=== PATIENT | male | born 1960 | race Caucasian/White ===

== ENCOUNTER → 2016-11-25 | Outpatient (CLI) | payer BC ==
[~2016-11-25] MED LIST: AMLO-110 PO; ASPCH81 PO; CLR10 PO; COEN100C11 PO; EZET10TA63 PO; FENO145T26 PO; HYDR-5688 PO; LOSA50TA54 PO; MISCTAB78 PO; MULT-506 PO; OMEG12006 PO; VALS-10 PO
[2016-11-25 20:20] LABS: BLOOD UREA NITROGEN 20 mg/dl (7-18); BUN/CREATININE RATIO 16.7 (10-20); CARBON DIOXIDE 32 mmol/L (21-32); CHLORIDE 104 mmol/L (98-107); GLUCOSE 137 mg/dl (70-99); POTASSIUM 3.1 mmol/L (3.5-5.1); SODIUM 141 mmol/L (136-145)
[2016-11-25 20:21] LABS: CALCIUM 9.5 mg/dl (8.5-10.1)
== END | disposition home or self-care (01) ==
LOC: C.LAB 19:12
PROVIDERS: ATTEND Family Medicine Adolescent Medicine
DX: E86.0 Dehydration (principal)

== ENCOUNTER → 2017-01-31 | Day surgery (SDC) | payer BC ==
[2017-01-23 08:51] VITALS: Ht 172.7 cm; Wt 94.5 kg
[~2017-01-31] VITALS: Ht 172.7 cm; Wt 94.5 kg
[~2017-01-31] MED LIST changes: +ATROPINE SULFATE 0.1 MG/ML 5ML SYR IV PRN; +BUPIVACAINE 0.5 % 5 MG/1 ML PF 10ML VIAL ONE; +CEFAZOLIN 2000 MG/60 ML D5W IV SCH; +EpHEDrine SULFATE INJ 50 MG/ML AMP IV PRN; -FENO145T26 PO; +FENTANYL CITRATE INJ 50 MCG/1 ML 2 ML VIAL IV PRN; +FENTANYL CITRATE INJ 50 MCG/1 ML 2 ML VIAL ONE; +LACTATED RINGER'S 1000ML 1,000 ML IV SCH; +LIDOCAINE HCL 1% 20 ML VIAL ONE; +LIDOCAINE HCL 2% 2 ML VIAL (20MG/ML) ONE; -LOSA50TA54 PO; +METHYLPREDNISOLONE ACETATE 80 MG/ML VIAL ONE; +MIDAZOLAM HCL 1 MG/ML 2ML VIAL ONE; +ONDANSETRON INJ 2 MG/ML 2 ML VIAL IV PRN; +ONDANSETRON INJ 2 MG/ML 2 ML VIAL ONE; +OXYCODONE/ACETAMINOPHEN 5-325 TAB PO PRN; +PROPOFOL IV EMULSION 10 MG/ML 20 ML VIAL IV ONE; +SODIUM CHLORIDE 0.9% 1000ML 1,000 ML IV SCH
--- NOTE | 2017-01-31 07:41 | History & Physical Bridge - [place] ---
H&P Re-Evaluation Bridge Note: I have examined the patient, reviewed the History & Physical and in the interval since the performance of the History & Physical I have noted the following changes of clinical significance: No changes noted
--- NOTE | 2017-01-31 08:07 | [facility] Post Operative Brief Note ---
Immediate Operative Summary Operative Date Jan 31, 2017. Pre-Operative Diagnosis Right Long Trigger Finger; Left Long Trigger Finger Post-Operative Diagnosis Same Procedure(s) Performed Right Long Trigger Finger Release; Left Long Trigger Finger Steriod Injection Surgeon Dr. Draper Banquet Houseperson Surgeon(s) Mauri Hoyos PA-C Estimated Blood Loss 0 Findings ABOVE Specimens None Anesthesia LOCAL IV SEDATION Disposition
[2017-01-31 08:08] VITALS: TEMP 36.6
--- NOTE | 2017-01-31 08:12 | Discharge Instructions-SurgCtr ---
Discharge Instructions Date of Service Jan 31, 2017. Visit Reason for Visit: Bilateral Long Finger Triggering Digits Discharge Discharge Diagnosis / Problem: SAME ABOVE Discharge Goals Goal(s): Decrease discomfort, Improve function Activity Recommendations Activity Limitations: as noted below Lifting Limitations: gradually increase as tolerated Exercise/Sports Limitations: until after follow-up appointment Shower/Bathe: may shower/bathe in 3 days Anesthesia . Post Anesthesia Instructions: If you have had General Anesthesia or IV Sedation: * Do not drive today. * Resume driving when surgeon permits. * Do not make important decisions or sign legal documents today. * Call surgeon for: 1. Temperature elevations greater than 101 degrees F. 2. Uncontrollable pain. 3. Excessive bleeding. 4. Persistent nausea and vomiting. 5. Medication intolerance (nausea, vomiting or rash). * For nausea and vomiting use only clear liquids such as: tea, soda, bouillon until nausea subsides, then gradually increase diet as tolerated. * If you have any concerns or questions, call your surgeon's office. If physician is unavailable and it is an emergency, call 911 or go to the nearest emergency room. . Instructions / Follow-Up Instructions / Follow-Up MEDICATIONS: * Resume previous medications unless instructed otherwise by your surgeon. * Always take pain medication on a full stomach or with food to avoid upset stomach. * Do not drink alcohol or drive while taking narcotics. * Ibuprofen or Tylenol may be taken if narcotic not needed. SPECIAL CARE INSTRUCTIONS: __ None _X_ Keep extremity elevated and iced x 48 hours; apply ice 20-30 minutes 8-10 times/day. May remove at night. __ Sling __24 hrs/day __ Remove at night __ Shoulder Immobilizer __ 24 hrs/day __ Remove at night _X_ Dressing __ Maintain until seen in office, may shower with plastic over site _X_ Remove dressings in 24-48 hours and then may shower _X_ Cover incisions with band-aids after showering __ Do not remove steri-strips Call physician if chills or temperature rises above 102 degrees or pain unrelieved by prescribed pain medications at . . Diet Recommendations Home Diet: resume previous diet Procedures Procedures Performed: Right Long Trigger Finger Release; Left Long Trigger Finger Steriod Injection Pending Studies Studies pending at discharge: no Medical Emergencies . Who to Call and When: Medical Emergencies: If at any time you feel your situation is an emergency, please call 911 immediately. . Non-Emergent Contact Non-Emergency issues call your: Primary Care Provider . . "Provider Documentation" section prepared by Asher Hoyos. .
--- NOTE | 2017-01-31 08:15 | Anesthesia Progress Nt - [facility] ---
Anesthesia Post Op Note Date & Time Jan 31, 2017 at 08:15 Vital Signs Pain Intensity: 0 Vital Signs Past 12 Hours Date Time Temp Pulse Resp B/P (MAP) Pulse Ox O2 Delivery O2 Flow Rate FiO2 01/31/17 08:08 36.6 60 12 133/78 (96) 96 Room Air 01/31/17 07:00 36.6 64 18 133/79 (97) 98 Room Air Notes Mental Status: alert / awake / arousable, participated in evaluation Pt Amnestic to Procedure: Yes Nausea / Vomiting: adequately controlled Pain: adequately controlled Airway Patency, RR, SpO2: stable & adequate BP & HR: stable & adequate Hydration State: stable & adequate Anesthetic Complications: no major complications apparent
[2017-01-31 08:40] VITALS: BP 109/67; PULSE 65; O2SAT 95
--- NOTE | 2017-02-02 08:44 | OPERATIVE REPORT ---
DATE OF SURGERY: 01/31/17 PREOPERATIVE DIAGNOSES: 1. Right long trigger finger. 2. Left long trigger finger. POSTOPERATIVE DIAGNOSIS: Same. PROCEDURE: 1. Release of the A1 taye right long finger. 2. Injection of left long finger with cortisone shot. SURGEON: Dr. Draper LABORER [employer]: Asher Hoyos PA-C ANESTHESIOLOGIST: Dr. Hernández ANESTHESIA: Local with IV sedation. DRAINS: None. COMPLICATIONS: None. CONDITION: The patient tolerated the procedure well and returned to the recovery room in apparent satisfactory condition. INDICATIONS FOR SURGERY: Patrice is a 56-year-old right hand dominant male who has had triggering of the right long finger chronic now and painful and elected to go ahead and proceed with surgery. He is having beginning triggering of the left long finger. We elected to go ahead and give him a shot at the time of surgery. Procedure, expected outcomes, side effects, and risks were all explained in detail including no guarantees of the surgery. DESCRIPTION OF PROCEDURE: Patient was taken to the operating room, at which time he was placed supine on the operating table and given IV sedation by the anesthesia department. We started with an injection to his left long finger. We cleaned the anticipated injection site off with multiple alcohol swabs and then injected it without incident with cortisone and Marcaine. A Band-Aid was placed over the injection site. The right hand was then prepped and draped in usual sterile fashion for surgery. We put a forearm tourniquet on for blood control. The right arm then was prepped and draped in a sterile fashion for surgery. We exsanguinated her arm and put a forearm tourniquet for blood control. The right arm was then prepped and draped in usual sterile fashion for surgery. We exsanguinated her arm and put a forearm tourniquet up to 250 mmHg. Transverse incision was then made over the A1 taye with loupe magnification. We dissected it down and retracted the digital nerves and then divided the A1 taye with an 11 blade. Wound was copiously irrigated then. Fingers were taken though range of motion. No longer trigger. Skin was closed with interrupted 4-0 nylon sutures. Marcaine without epinephrine was placed in the skin edges. Placed in a sterile dressing of Xeroform, 4 x 4, Sof-Rol, and Coban and returned to recovery room in apparent satisfactory condition.
== END | disposition home or self-care (01) ==
LOC: X.SURG 06:38
PROVIDERS: ATTEND Orthopaedic Surgery
DX: M65.331 Trigger finger, right middle finger (principal); M65.332 Trigger finger, left middle finger; I10 Essential (primary) hypertension; E66.9 Obesity, unspecified; E78.00 Pure hypercholesterolemia, unspecified; Z90.49 Acquired absence of other specified parts of digestive tract; Z98.52 Vasectomy status; Z85.828 Personal history of other malignant neoplasm of skin; Z79.82 Long term (current) use of aspirin

== ENCOUNTER 2017-12-11 03:03 | Emergency (ER) | payer BC, OTHER ==
[~2017-12-11] VITALS: Ht 172.7 cm; Wt 101.6 kg
[~2017-12-11 03:03] MED LIST changes: -ATROPINE SULFATE 0.1 MG/ML 5ML SYR IV PRN; -BUPIVACAINE 0.5 % 5 MG/1 ML PF 10ML VIAL ONE; -CEFAZOLIN 2000 MG/60 ML D5W IV SCH; -EpHEDrine SULFATE INJ 50 MG/ML AMP IV PRN; -FENTANYL CITRATE INJ 50 MCG/1 ML 2 ML VIAL IV PRN; -FENTANYL CITRATE INJ 50 MCG/1 ML 2 ML VIAL ONE; -HYDR-5688 PO; -LACTATED RINGER'S 1000ML 1,000 ML IV SCH; -LIDOCAINE HCL 1% 20 ML VIAL ONE; -LIDOCAINE HCL 2% 2 ML VIAL (20MG/ML) ONE; -METHYLPREDNISOLONE ACETATE 80 MG/ML VIAL ONE; -MIDAZOLAM HCL 1 MG/ML 2ML VIAL ONE; -ONDANSETRON INJ 2 MG/ML 2 ML VIAL IV PRN; -ONDANSETRON INJ 2 MG/ML 2 ML VIAL ONE; -OXYCODONE/ACETAMINOPHEN 5-325 TAB PO PRN; -PROPOFOL IV EMULSION 10 MG/ML 20 ML VIAL IV ONE; -SODIUM CHLORIDE 0.9% 1000ML 1,000 ML IV SCH
[2017-12-11 03:07] VITALS: TEMP 36.6; Ht 172.7 cm; Wt 101.6 kg
[2017-12-11] MEDS ORDERED: KETOROLAC TROMETHAMINE 30 MG/ML VIAL IV STA (03:16)
[2017-12-11] MEDS ORDERED: LORAZEPAM 2 MG/ML 1 ML VIAL ONE (03:22)
[2017-12-11] MEDS ORDERED: SODIUM CHLORIDE 0.9% 1000ML 1,000 ML IV STA (03:22)
[2017-12-11] MEDS ORDERED: LORAZEPAM 2 MG/ML 1 ML VIAL IV STA (03:22)
[2017-12-11 03:44] LABS: BASO % 0.2 %; BASO ABS # 0.02 K/uL (0-0.2); EOS % 1.7 %; EOS ABS # 0.18 K/uL (0-0.5); HEMATOCRIT 43.9 % (42-52); HEMOGLOBIN 15.7 g/dL (14.0-18.0); IG# 0.05 K/uL (0.00-0.02); LYMPH % 32.9 %; LYMPH ABS # 3.43 K/uL (1.2-3.4); MEAN CELL VOLUME 85.1 fL (80-100); MEAN CORPUSCULAR HEMOGLOBIN 30.4 pg (25-34); MEAN CORPUSCULAR HGB CONC 35.8 g/dl (32-36); MEAN PLATELET VOLUME 9.3 fL (7.4-10.4); MONO % 11.2 %; MONO ABS # 1.17 K/uL (0.11-0.59); NEUT % 53.5 %; NEUT ABS # 5.57 K/uL (1.4-6.5); PLATELET COUNT 177 K/uL (130-400); RED CELL DISTRIBUTION WIDTH CV 13.1 % (11.5-14.5); RED CELL DISTRIBUTION WIDTH SD 40.6 fL (36.4-46.3); WHITE BLOOD COUNT 10.42 K/uL (4.8-10.8)
[2017-12-11 03:49] LABS: ISTAT CREATININE 1.5 mg/dl (0.6-1.3); ISTAT IONIZED CALCIUM 1.12 mmol/l (1.12-1.32); ISTAT POTASSIUM 3.4 mEq/L (3.3-5.0)
[2017-12-11] MEDS ORDERED: ASPI81TA28 PO (03:51)
[2017-12-11] MEDS ORDERED: NIAC100T5 PO (03:51)
[2017-12-11] MEDS ORDERED: COEN200C PO (03:51)
[2017-12-11] MEDS ORDERED: OPTIRAY 320 IV PRN (04:00)
[2017-12-11 04:02] LABS: ALBUMIN 4.2 gm/dl (3.4-5.0); CREATININE 1.49 mg/dl (0.60-1.40); POTASSIUM 3.4 mmol/L (3.5-5.1)
[2017-12-11] MEDS ORDERED: MoRPHine SULFATE 4 MG/ML 1 ML CARP\\VIAL IV STA (04:04)
[2017-12-11 04:05] LABS: TOTAL PROTEIN 7.5 gm/dl (6.4-8.2)
[2017-12-11] MEDS ORDERED: OXYCODONE IR HOME PACK PO ONE (04:30)
--- NOTE | 2017-12-11 04:30 | EMERGENCY ROOM VISIT NOTE ---
History First contact with patient: 03:11 Chief Complaint: FLANK PAIN Stated Complaint: PAIN IN SIDE History of Present Illness The patient is a 57 year old male who presents to the Emergency Room with complaints of right flank pain that radiates around his right upper quadrant for the past day described as aching, ranging in severity 7 out of 10. Palpation makes it worse nothing makes it better. Patient did develop a rash to the back area tonight. No history of shingles. He has had his gallbladder removed. No history of kidney stones. Patient denies chest pain, dyspnea, fever, chills, nausea, vomiting, diarrhea, testicular pain, penile pain. Review of Systems An 10 system review of systems was completed with positives and pertinent negatives listed in the HPI. Past Medical/Surgical History Hypertension, hyperlipidemia, cholecystectomy, claustrophobia Social History Smoking Status: Never Smoker Smokeless Tobacco Use: No Alcohol Use: occasionally Drug Use: none Marital Status: Housing Status: lives with family Occupation Status: employed Current/Historical Medications Scheduled Amlodipine (Norvasc), 5 MG PO HS Aspirin (Aspirin Ec), 81 MG PO HS Coenzyme Q10 (Ubidecarenone) (Coenzyme Q-10), 200 MG PO HS Ezetimibe (Zetia), 10 MG PO HS Loratadine (Claritin), 10 MG PO HS Misc Natural Products (Osteo Bi-Flex Advanced Do), 2 TAB PO HS Niacin (Niacin), 100 MG PO HS [place]-3 Fatty Acids ([place] 3), 2 CAP PO HS Valsartan/Hctz (Diovan Hct 320MG/12.5MG), 1 TAB PO HS Physical Exam Vital Signs Date Time Temp Pulse Resp B/P (MAP) Pulse Ox O2 Delivery O2 Flow Rate FiO2 12/11/17 03:59 79 18 168/98 95 Room Air 12/11/17 03:07 36.6 80 18 167/106 97 Room Air Physical Exam VITALS: Vitals are noted on the nurse's note and reviewed by myself. Vital signs hypertensive. GENERAL: Pleasant male who appears in pain, in no acute distress, nondiaphoretic , well-developed well-nourished. SKIN: Right upper back over the T7 distribution with raised erythematous vesicular papules concerning for shingles. The rest of the skin was without rashes, erythema, edema, or bruising. There is no tenting of the skin. Capillary reflex less than 2 seconds. HEAD: Normocephalic atraumatic. EARS: External auditory canals clear, tympanic membranes pearly tamayo without erythema or effusion bilaterally. EYES: Pupils equal round and reactive to light and accommodation. Conjunctivae without injection, sclerae without icterus. Extraocular movements intact. NOSE: Patent, turbinates without inflammation or discharge. No sinus tenderness. MOUTH: Mucous membranes moist. Pharynx without erythema or exudate. Uvula midline. Airway patent. Tongue does not deviate. NECK: Supple without nuchal rigidity. No lymphadenopathy. No thyromegaly. Cervical spine is nontender. No JVD. HEART: Regular rate and rhythm without murmurs gallops or rubs. LUNGS: Clear to auscultation bilaterally without wheezes, rales or rhonchi. No retractions or accessory muscle use. ABDOMEN: Positive bowel sounds x 4. Normal tympanic percussion. Soft, tender to palpation over the right flank and upper quadrant, without masses or organomegaly. No guarding or rebound tenderness. Right CVA tenderness MUSCULOSKELETAL: No muscle atrophy, erythema, or edema noted. NEURO: Patient was alert and oriented to person place and time. Normal sensation to light and sharp touch. No focal neurological deficits. Medical Decision & Procedures Laboratory Results 12/11/17 03:32 Red Blood Count 5.16, Mean Corpuscular Volume 85.1, Mean Corpuscular Hemoglobin 30.4, Mean Corpuscular Hemoglobin Concent 35.8, Mean Platelet Volume 9.3, Neutrophils (%) (Auto) 53.5, Lymphocytes (%) (Auto) 32.9, Monocytes (%) (Auto) 11.2, Eosinophils (%) (Auto) 1.7, Basophils (%) (Auto) 0.2, Neutrophils # (Auto ) 5.57, Lymphocytes # (Auto) 3.43, Monocytes # (Auto) 1.17, Eosinophils # (Auto ) 0.18, Basophils # (Auto) 0.02 12/11/17 03:32 Test 12/11/17 03:32 12/11/17 03:35 White Blood Count 10.42 K/uL (4.8-10.8) Red Blood Count 5.16 M/uL (4.7-6.1) Hemoglobin 15.7 g/dL (14.0-18.0) Hematocrit 43.9 % (42-52) Mean Corpuscular Volume 85.1 fL (80-100) Mean Corpuscular Hemoglobin 30.4 pg (25-34) Mean Corpuscular Hemoglobin Concent 35.8 g/dl (32-36) Platelet Count 177 K/uL (130-400) Mean Platelet Volume 9.3 fL (7.4-10.4) Neutrophils (%) (Auto) 53.5 % Lymphocytes (%) (Auto) 32.9 % Monocytes (%) (Auto) 11.2 % Eosinophils (%) (Auto) 1.7 % Basophils (%) (Auto) 0.2 % Neutrophils # (Auto) 5.57 K/uL (1.4-6.5) Lymphocytes # (Auto) 3.43 K/uL (1.2-3.4) Monocytes # (Auto) 1.17 K/uL (0.11-0.59) Eosinophils # (Auto) 0.18 K/uL (0-0.5) Basophils # (Auto) 0.02 K/uL (0-0.2) RDW Standard Deviation 40.6 fL (36.4-46.3) RDW Coefficient of Variation 13.1 % (11.5-14.5) Immature Granulocyte % (Auto) 0.5 % Immature Granulocyte # (Auto) 0.05 K/uL (0.00-0.02) Urine Color YELLOW Urine Appearance CLEAR (CLEAR) Urine pH 5.0 (4.5-7.5) Urine Specific [place] 1.032 (1.000-1.030) Urine Protein NEG (NEG) Urine Glucose (UA) NEG (NEG) Urine Ketones NEG (NEG) Urine Occult Blood NEG (NEG) Urine Nitrite NEG (NEG) Urine Bilirubin NEG (NEG) Urine Urobilinogen NEG (NEG) Urine Leukocyte Esterase NEG (NEG) Est Creatinine Clear Calc Drug Dose 62.4 ml/min Estimated GFR () 59.1 Estimated GFR (Non- 51.0 BUN/Creatinine Ratio 15.4 (10-20) Calcium Level 9.0 mg/dl (8.5-10.1) Total Bilirubin 0.7 mg/dl (0.2-1) Direct Bilirubin 0.1 mg/dl (0-0.2) Aspartate Amino Transf (AST/SGOT) 30 U/L (15-37) Alanine Aminotransferase (ALT/SGPT) 51 U/L (12-78) Alkaline Phosphatase 47 U/L (45-117) Total Protein 7.5 gm/dl (6.4-8.2) Albumin 4.2 gm/dl (3.4-5.0) Lipase 193 U/L (73-393) Bedside Hemoglobin 15.6 g/dl (14.0-18.0) Bedside Hematocrit 46 % (42-52) Bedside Sodium 142 mEq/L (135-144) Bedside Potassium 3.4 mEq/L (3.3-5.0) Bedside Chloride 102 mEq/L (101-112) Bedside Total CO2 26 mEq/l (24-31) Anion Gap 18.0 mmol/L (16-25) Bedside Blood Urea Nitrogen 24 mg/dl (7-18) Bedside Creatinine 1.5 mg/dl (0.6-1.3) Bedside Glucose (other) 116 mg/dl (70-99) Bedside Ionized Calcium (Ryan) 1.12 mmol/l (1.12-1.32) Medications Administered Medications (Trade) Dose Ordered Sig/Blessing Route Start Time Stop Time Status Last Admin Dose Admin Ketorolac Tromethamine (Toradol Inj) 10 mg NOW STAT IV 12/11/17 03:16 12/11/17 03:19 DC 12/11/17 03:42 10 MG Lorazepam (Ativan Inj) 1 mg NOW STAT IV 12/11/17 03:22 12/11/17 03:24 DC 12/11/17 03:43 1 MG Sodium Chloride 1,000 ml @ 999 mls/hr Q1H1M STAT IV 12/11/17 03:22 12/11/17 04:22 DC 12/11/17 03:43 999 MLS/HR Morphine Sulfate (MoRPHine SULFATE INJ) 4 mg NOW STAT IV 12/11/17 04:04 12/11/17 04:05 DC 12/11/17 04:13 4 MG ED Course Prior records/ancillary studies reviewed. Triage Nursing notes reviewed. Additional history obtained from family. The patient's history was concerning for abdominal pain. Differential diagnosis: Etiologies such as shingles, appendicitis, diverticulitis, PUD, biliary pathology, UTI, pancreatitis, obstruction, mesenteric ischemia, aortic pathology , infections, inflammatory bowel disease, renal colic, as well as others were entertained. Physical examination findings: As above. ER treatment provided: Ativan, Toradol, IV fluids Patient all of a sudden began to cry and scream after he became nervous over imaging. Patient is claustrophobic. I informed him multiple times that the CT scan is open. After he was medicated he calmed down and was agreeable to treatment plan. On reassessment the patient felt better. Diagnostics interpreted by me: The labs revealed CR 1.49 no leukocytosis, negative urine Imaging studies: CT ABDOMEN & PELVIS With Contrast: No renal calculi. No hydronephrosis. Bladder wall thickening may be due to incomplete distention. Cystitis is difficult to exclude given this appearance. Please correlate clinically. No free fluid. Bowel is normal in caliber. The appendix is normal in appearance. Fatty infiltration the liver. Cholecystectomy. Solid organs are otherwise unremarkable on a noninfused exam. Radiologist: Ross Peña MD Exam and history seem consistent with shingles. Patient was counseled on diagnosis. He was informed not to be around anyone immunocompromised or around young children.He Is advised to take medications as directed, rest, stay well- hydrated follow-up family care in a few days here in the ER sooner for vomiting of chest pain, fevers, worsening signs or symptoms or as needed. Imaging was negative. Patient is well-appearing. He did not have acute abdomen on exam. By the evaluation outlined above emergent etiologies such as appendicitis, diverticulitis, PUD, biliary pathology, UTI, pancreatitis, obstruction, mesenteric ischemia, aortic pathology, inflammatory bowel disease, renal colic , as well as others were deemed relatively unlikely. The pt informed about the findings as listed above. All questions were answered and pleased with the treatment. Return instructions were outlined and the patient was discharged in stable condition. Outpatient prescription management: Valtrex, OxyIR Referral: The patient was referred back to their primary care physician for follow-up in 2 to 3 days for a recheck of the current condition. Case reviewed with my attending The chart was completed utilizing [employer] voice recognition software. Grammatical errors, random word insertions, pronoun errors, and incomplete sentences are an occassional consequence of this system due to software limitations, ambient noise, and hardware issues. Any formal questions or concerns about the content, text, or information contained within the body of this dictation should be directly addressed to the physician paraprofessional education assistant for clarification. Medical Decision As above [place] Drug Monitoring Program Search Results: patient reviewed within database, no issues identified Medication Reconcilliation Current Medication List: was personally reviewed by me Blood Pressure Screening Patient's blood pressure: Elevated blood pressure Blood pressure disposition: Elevated BP felt to be situational Impression Primary Impression: Shingles Departure Information Dispostion Home / Self-Care Condition GOOD Referrals Danny Yousif MD (PCP) Patient Instructions My [facility] [place] [employer] Additional Instructions Valtrex 1 g 3 times a day for one week.Any medication can cause an allergic reaction, stop the pills immediately and return to the ER for rash, hives, breathing difficulties, or swelling. Oxycodone (OxyIR) 5mg: Take 1-2 pills every four hours for breakthrough pain. Avoid alcohol, operating machinery or dangerous equipment, working on ladders or roofs, DRIVING, or situations where being under the influence may be dangerous. It is recommended to use an [id number] stool softener such as Colace, 100mg twice daily while taking this medication to avoid constipation. Ibuprofen(Motrin, Advil) may be used for fever or pain. Use 600mg every six hours as needed. Take with food. Avoid using more than 2400mg in a 24 hour period. Do not use 2400mg per day for more than three consecutive days without physician direction. Prolonged inappropriate use can lead to stomach upset or ulcers. (AND/OR) Acetaminophen(Tylenol) may be used for fever or pain. Use 1000mg every six hours as needed. Avoid using more than 3000mg in a 24 hour period. Rest and drink plenty of fluids. Avoid scratching the area. Avoid being around anyone immunocompromised or until rash has resolved. Continue current medications. Return to the ER for chest pain, difficulty breathing, fevers, vomiting, worsening of your condition, or as needed. Follow up with your primary physician this week for a recheck of your current condition. Problem Qualifiers Primary Impression: Shingles Herpes zoster complications: without complications Qualified Codes: B02.9 - Zoster without complications
[2017-12-11] MEDS ORDERED: OXYC1TAB3 PO ×2 (04:32→04:36)
[2017-12-11] MEDS ORDERED: VALA1TAB2 PO ×2 (04:32→04:46)
[2017-12-11 04:38] VITALS: BP 145/86; PULSE 76; O2SAT 98
--- NOTE | 2017-12-11 07:15 | DIAGNOSTIC IMAGING REPORT ---
CT ABD/PELVIS IV CONTRAST ONLY CLINICAL HISTORY: Right abdominal/flank pain COMPARISON STUDY: None. TECHNIQUE: Following the IV administration of 93 mL of Optiray-320, CT scan of the abdomen and pelvis was performed from the lung bases to the proximal femurs. Images are reviewed in the axial, sagittal, and coronal planes. IV contrast was administered without complication. A dose lowering technique was utilized adhering to the principles of ALARA. CT DOSE: 962.83 mGy.cm FINDINGS: Lower chest: The heart is normal in size and configuration, without pericardial effusion. The lung bases and pleural spaces are clear. Liver: There is mild hepatic steatosis. No focal hepatic masses are visualized. Gallbladder: Surgically absent Spleen: Normal in size and attenuation. Pancreas: Unremarkable. Adrenal glands: Unremarkable. Kidneys: There is symmetric renal cortical enhancement. The kidneys are normal in size without hydronephrosis. Bowel: There are no transition zones indicate bowel obstruction. The appendix appears normal. There is no evidence of acute diverticulitis. Peritoneum: There is no intraperitoneal free air or abdominal ascites. Vasculature: The abdominal aorta is normal in course and caliber. Adenopathy: None. Pelvic viscera: The bladder is contracted. There are prostatic calcifications present. Skeletal structures: No destructive osseous lesions are seen. IMPRESSION: 1. Hepatic steatosis 2. No evidence of bowel obstruction. No evidence of free air 3. Normal appendix. No evidence of acute diverticulitis. Electronically signed by: Mustapha Michael M.D. 12/11/2017 7:13 AM Dictated Date/Time: 12/11/2017 7:04 AM
== END 2017-12-11 04:45 | disposition home or self-care (01) ==
LOC: C.EDB 03:04 → C.EDA 04:45
DX: B02.9 Zoster without complications (principal); I10 Essential (primary) hypertension; E78.5 Hyperlipidemia, unspecified; Z79.82 Long term (current) use of aspirin; Z79.899 Other long term (current) drug therapy